=== PATIENT | female | born 1955 | race Caucasian/White ===

== ENCOUNTER → 2018-12-18 | Outpatient (CLI) | payer MEDICARE, OTHER ==
[~2018-12-18] MED LIST: ALBU90OI6 INH; AMOX875 PO; Augmentin 875-1 EACH PO; Duoneb 2.5-0.5 M3 ML INH; FLUSAL1005; FLUSAL2505; Hydrocodone-Ap1 EA23; LAMO100 PO; LEVFLO500 PO; METPRE4DP PO; Mobic15 MG; Mucinex600 MG PO; Norco 5-325 Ta1 EACH PO; PRED20; Paxil40 MG PO; Prednisone20 MG PO
[2018-12-20 18:06] LABS: HPV 16 Negative (Negative); HPV 18 Negative (Negative); HPV OTHER HR TYPES Negative (Negative)
== END | disposition home or self-care (01) ==
LOC: LAB SHORT 20:17 → LAB 20:17
PROVIDERS: Physician Assistant
DX: Z12.4 Encounter for screening for malignant neoplasm of cervix (principal)
CPT/HCPCS: 87624; G0123

== ENCOUNTER 2019-08-21 11:10 | Inpatient (IN) | payer MEDICARE, OTHER ==
[~2019-08-21] VITALS: Ht 157.5 cm; Wt 87.5 kg
[2019-08-21 11:49] LABS: Hemoglobin 15.8 g/dL (11.5-16.0); Mean Corpuscular HGB 30.4 pg (26.0-34.0); Mean Corpuscular HGB Conc 33.6 g/dL (31.5-36.5); Mean Corpuscular Volume 90 fL (80-100); Mean Platelet Volume 9.1 fL (9.1-12.4); Platelet Count 336 K/mm3 (150-400); RDW Coefficient Variation 13.2 % (11.7-14.2); RDW Standard Deviation 43.8 fL (35.1-46.3); White Blood Cell Count 12.51 K/mm3 (4.00-11.30)
[2019-08-21 11:55] LABS: International Normalized Ratio 0.91; Prothrombin Time Results 9.8 Sec (9.7-11.5)
[2019-08-21 11:59] LABS: Alanine Aminotransfer (ALT/SGP 18 U/L (12-78); Albumin, Blood 3.9 g/dL (3.4-5.0); Albumin/Globulin Ratio 1.2 (0.8-1.8); Alk Phos 79 U/L (50-136); Anion Gap 7 mmol/L (6-16); Aspartate Aminotrans (AST/SGOT 16 U/L (12-37); Bilirubin, Total 0.4 mg/dL (0.1-1.0); Blood Urea Nitrogen 11 mg/dL (8-24); Bun/Creatinine Ratio 12.5 (12.0-20.0); CHOL/HDL RATIO 4.5; CO2, Blood 25 mmol/L (21-32); Calcium, Blood 9.6 mg/dL (8.5-10.1); Chloride, Blood 107 mmol/L (98-108); Cholesterol 207 mg/dL (50-200); Creatinine, Blood 0.88 mg/dL (0.40-1.00); Globulin, Blood 3.2 g/dL (2.2-4.0); Glomerular Filtration Rate >60 (60-); Glucose, Blood 178 mg/dL (70-99); HDL Cholesterol 46 mg/dL (>39); LDL/HDL RATIO 2.6; Low Density Lipoprotein Chol 120 mg/dL (0-110); Magnesium, Blood 2.1 mg/dL (1.6-2.4); Potassium, Blood 3.6 mmol/L (3.5-5.5); Sodium, Blood 139 mmol/L (136-145); Total Protein, Blood 7.1 g/dL (6.4-8.2); Triglycerides 204 mg/dL (30-160); Troponin I 0.139 ng/mL (0.000-0.040); Very Low Density Lipoprot Chol 40 mg/dL (6-32)
[2019-08-21] MEDS ORDERED: NAPR500 PO (16:55)
[2019-08-21] MEDS ORDERED: FLUT1DIS5 INH (16:57)
[2019-08-21] MEDS ORDERED: CYCLOBENZAPRINE5 MG PO (16:58)
--- NOTE | 2019-08-21 19:00 | NUR ---
ASSUMED CARE NOTE: ASSUMED CARE OF PT @ 1900, RECEVIED REPORT FROM MARIA VICTORIA TILLEY. PT IS ALERT AND ORIENTEDX3. PT IN SINUS TACH WITH HR IN THE 110'S. PT IS ON 2L OF O2 VIA NC, SPO2 ABOVE 90% PT'S LUNG SOUNDS ARE CLEAR T/O. PT STATES 6/10 PAIN TO HEAD AND JAW. NITRO RUNNING @ 10MCG/MIN. TR BAND IN PLACE TO R WRIST WITH 4CC OF AIR INFLATED. CATH SITE WNL, NO HEMATOMA OR ACTIVE BLEEDING NOTE. PT DENIES NUMBNESS OR TINGILING DISTAL TO SITE, FINGERS WARM AND PINK WITH CAP REFILL LESS THEN 3 SEC. BOWEL TONES HEARD IN ALL FOUR QUADRANTS. PT USING BEDPAN AT BEDSIDE. WILL CONTINUE TO MONITOR PT T/O SHIFT.
--- NOTE | 2019-08-21 19:15 | NUR ---
PT TO ICU 10 FROM [facility] AT 1540, ALERT AND ORIENTED X4, APPROPRIATE AND COOPERATIVE, POSITIONS SELF IN BED INDEPENDENTLY. HR 100-110, BP ELEVATED, OTHER VSS. EKG OBTAINED PER ORDERS, TR BAND IN PLACE TO R WRIST WITH 12ML AIR, SITE WNL, WRIST IMMOBILIZER IN PLACE. R HAND WITH SLIGHT PURPLE DISCOLORATION AND COOL TO TOUCH, SENSATION INTACT, PULSE WNL, CAP REFILL <3SEC, SPO2 PLETH GOOD ON R FIRST FINGER, WILL CONTINUE TO MONITOR. PT REPORTS 5/10 NECK AND JAW PAIN AND HEADACHE. DR. LUCERO IN TO SEE PT AND REVIEW EKG, AWARE OF PT'S C/O, NEW ORDERS RECEIVED. TYLENOL AND BP MEDS ADMINISTERED. AIR FROM TR BAND BEING RELEASED PER PROTOCOL, NITRO INFUSING PER ORDERS. VS REMAIN STABLE WITH NITRO GTT. PT HAD 2 SOFT BM'S AND 1 LARGE LIQUID BM, DENIES HAVING DIARRHEA PRIOR TO ARRIVAL. TR BAND WITH 4ML AIR AT SHIFT CHANGE, SITE REMAINS WNL, NO BLEEDING OR HEMATOMAS NOTED. PT REPORTS JAW AND NECK PAIN ARE DECREASING, DENIES CHEST PAIN/PRESSURE. REPORT TO ONCOMING SHIFT.
--- NOTE | 2019-08-21 22:11 | NUR ---
UPDATE: PT HAD 800CC OF GREEN EMESIS, AFTER ATTEMPTING TO EAT DINNER. ZOFRAN GIVEN PER EMAR. NITRO WAS INCREASED TO 15MCG/MIN DUE TO INCREASED CP, SPB IN THE 170'S BEFORE, 130'S AFTER NITRO INCREASE. PT HAD A LOOSE INCONTIENT BOWEL MOVEMENT. TR BAND IS COMPLETELY DEFLATED, SITE WNL.
[2019-08-22 03:14] LABS: Hematocrit 44.7 % (33.0-51.0); Hemoglobin 14.8 g/dL (11.5-16.0); Mean Corpuscular HGB 30.2 pg (26.0-34.0); Mean Corpuscular HGB Conc 33.1 g/dL (31.5-36.5); Mean Corpuscular Volume 91 fL (80-100); Mean Platelet Volume 9.1 fL (9.1-12.4); Platelet Count 288 K/mm3 (150-400); RDW Coefficient Variation 13.2 % (11.7-14.2); RDW Standard Deviation 44.5 fL (35.1-46.3); White Blood Cell Count 13.51 K/mm3 (4.00-11.30)
[2019-08-22 03:37] LABS: Alanine Aminotransfer (ALT/SGP 24 U/L (12-78); Albumin, Blood 3.6 g/dL (3.4-5.0); Albumin/Globulin Ratio 1.1 (0.8-1.8); Alk Phos 75 U/L (50-136); Anion Gap 5 mmol/L (6-16); Aspartate Aminotrans (AST/SGOT 116 U/L (12-37); Bilirubin, Total 0.3 mg/dL (0.1-1.0); Blood Urea Nitrogen 10 mg/dL (8-24); Bun/Creatinine Ratio 14.5 (12.0-20.0); CHOL/HDL RATIO 4.9; CO2, Blood 29 mmol/L (21-32); Chloride, Blood 106 mmol/L (98-108); Cholesterol 190 mg/dL (50-200); Creatinine, Blood 0.69 mg/dL (0.40-1.00); Globulin, Blood 3.2 g/dL (2.2-4.0); Glomerular Filtration Rate >60 (60-); Glucose, Blood 142 mg/dL (70-99); HDL Cholesterol 39 mg/dL (>39); LDL/HDL RATIO 2.3; Low Density Lipoprotein Chol 88 mg/dL (0-110); Magnesium, Blood 2.2 mg/dL (1.6-2.4); Sodium, Blood 140 mmol/L (136-145); Total Protein, Blood 6.8 g/dL (6.4-8.2); Triglycerides 313 mg/dL (30-160); Very Low Density Lipoprot Chol 62 mg/dL (6-32)
--- NOTE | 2019-08-22 05:42 | NUR ---
SHIFT SUMMARY: SEE PREVIOUS NOTES. PT REMAINS ALERT AND ORIENTEDX3. PT IS ON 2L OF O2 VIA NC WITH SPO2 @ 95% PT HAS BEEN IN SINUS TACH T/O SHIFT WITH HR BETWEEN 110, AND 115 WITH ACTIVITY. PT DENIES SOB. NITRO DRIP TITRATED DOWN TO 5MCG/MIN. NITRO WAS PLACED ON SB, FOR A SHORT PERIOD OF TIME, HOWEVER, PT STATED THAT SHE FELT LEFT SIDED CP RETURN. TR BAND OFF SINCE 08/20 2299, NO ACTIVE BLEEDING OR HEMATOMA NOTED. PT VOMITED 2X THIS SHIFT, ZOFRAN GIVEN FOR NAUSEA. PT REPORTED HAVING A HEADACHE, ACETAMINOPHEN GIVEN PRN. PT HAS BEEN USING BEDPAN DURING SHIFT. WILL CONTINUE TO MONITOR PT UNTIL REPORT IS GIVEN TO ONCOMING SHIFT.
--- NOTE | 2019-08-22 07:44 | NUR ---
CARE ASSUMED ASSESSMENT COMPLETED. PT CONTINUES TO REPORT HEADACHE, JAW AND NECK PAIN, LEFT POSTERIOR SHOULDER PAIN, AND LEFT ARM PAIN 5/10, NITRO GTT INCREASED TO 10MCG/MIN. BP AND HR SLIGHTLY ELEVATED, NO ST ELEVATION NOTED ON BUYING AGENT. R RADIAL ACCESS SITE WNL, TEGADERM CDI, WRIST IMMOBILIZER IN PLACE. PT REMINDED NOT TO USE R ARM. PT REPORTS MILD NAUSEA, DENIES NEED FOR MEDICATION AT THIS TIME. MOODS REMAIN LABILE, PT CRYING INTERMITTENTLY.
--- NOTE | 2019-08-22 09:40 | NUR ---
UPDATE DR. LUCERO IN TO SEE PATIENT, NEW ORDERS. NITRO GTT STOPPED, NS INFUSING AT 100ML/HR. PO MEDS ADMINISTERED WITHOUT DIFFICULTY. PT UP TO CHAIR FOR BREAKFAST, GAIT STEADY, TOLERATING MEALS WELL. AMBULATED TO TOILET TO VOID, THEN BACK TO CHAIR. PT NOW RESTING IN BED, REPORTS PAIN REMAINS BUT IS NOW 4/10. WILL CONTINUE TO MONITOR.
--- NOTE | 2019-08-22 15:04 | NUR ---
UPDATE PT NO PCU STATUS PER DR. LUCERO, HOME MEDICATIONS RESUMED. VSS, HR 90'S SINUS, ST ELEVATION REMAINS PRESENT, PT DOES REPORT SOME RELIEF FROM PAIN, ALTHOUGH STATES IT IS STILL MILDLY PRESENT. TROPONIN REDRAWN, DR. LUCERO AWARE OF RESULTS, WILL RECHECK TOMORROW AM. PT REMAINS PLEASANT AND COOPERATIVE WITH CARE, MOODS STILL LABILE AT TIMES. PT RESTING IN BED WITH EYES CLOSED, REPOSITIONS SELF. R RADIAL ACCESS SITE REMAINS WNL.
--- NOTE | 2019-08-22 15:44 | NUR ---
UPDATE PT UP TO BR FOR SMALL BM, BECAME SOB WITH EXERTION, EXP WHEEZE NOTED ON LEFT SIDE. PT BACK TO BED, NO DESAT DURING TRANSFER, SPO2 94% ON 2L/NC. HOB ELEVATED FOR COMFORT, RT CALLED FOR DUONEB.
--- NOTE | 2019-08-22 17:26 | NUR ---
1710: PCU TRANSFER PT REMAINS ALERT AND ORIENTED, APPROPRIATE AND COOPERATIVE, VSS. DENIES SOB, LS CTA, SPO2 MID 90'S ON 2L/NC. PT DENIES CHEST PAIN, STATES JAW AND NECK PAIN ARE STILL MILD. REPORT GIVEN TO TREVA COBOS. PT TO PCU RM 15 VIA WITH CHART, MEDS, AND BELONGINGS AT THIS TIME. TRANSFERRED SELF FROM WC TO BED WITHOUT DIFFICULTY, DENIES CP OR SOB WITH THIS EXERTION.
--- NOTE | 2019-08-22 20:28 | NUR ---
Assumed Care Pt presents in bed, talking to son on phone upon initial assessment. Pt is euphoric, happy, laughing and cooperative. Quite suddenly, pt begins to cry and becomes visibly anxious. When asked what has been bothering her, pt states "i miss my cat". empathetic listening provided. Pt ambulates to bathroom independantly but with this RN at bedside and gait is steady although pt becomes SOB with ambulation. Pt states "my chest hurts when I walk". No changes to telemetry with ambulation, pt remains with NSR. VSS. Oxygenation remains >94% on 2 L with ambulation. Pt is s/p angio, site is [facility]. arm board in place. Will continue to monitor.
--- NOTE | 2019-08-23 05:41 | NUR ---
Shift Summary VSS, at start of shift, pt endorsing mild 2/10 chest pain with ambulation. Chest pain has since resolved to 0/10 chest pain with application of heating pad. Pt is alert and oriented, at times laughing and at times tearful. Overall, compliant and cooperative. Pt with no changes to tele, troponin trending down, last reading 14.4. R radial access site wnl, tegaderm in place, and arm board in place. Will continue to monitor. no acute changes from initial assessment for note.
--- NOTE | 2019-08-23 07:52 | NUR ---
pt laying in bed awake a/ox3, pleasant and cooperative with care, follows commands well, denies any complaints this am, states she slept ok last night, lungs are clear in [place], dim in bases, resp even and unlabored, no cough noted, hrr, tele in place running sr per monitor, see strip, no edema noted, ppp+2, cap refill <3sec, vs stable, afebrile, iv sites x2 to left fa, infusing ns as ordered, btx4, abd flat soft nontender, voids without diff, skin has tr band site with armboard in place, site is clear, adam harris, call light in reach.
[2019-08-23] MEDS ORDERED: ACET325 PO (11:34)
[2019-08-23] MEDS ORDERED: Aspir 8181 MG PO (11:35)
[2019-08-23] MEDS ORDERED: Prinivil10 MG PO (11:35)
[2019-08-23] MEDS ORDERED: ATORVASTATIN CA40 M1 PO (11:35)
[2019-08-23] MEDS ORDERED: TICA90TA PO (11:36)
[2019-08-23] MEDS ORDERED: METO25ER PO (11:36)
--- NOTE | 2019-08-23 12:22 | NUR ---
PT HAS BEEN DISCHARGED TO HOME, IV'S WERE LEAKING, THEY WERE REMOVED INTACT, WENT OVER INSTRUCTIONS FOR HER TR BAND SITE, NEW MEDS CALLED INTO [facility], [facility] INCLUDED FOR HER. SHE VERBALIZED UNDERSTANDING. WILL LEAVE AT 1530 WHEN HER CAREGIVER CAN COME TO GET HER. CALL LIGHT IN REACH.
== END 2019-08-23 15:04 | disposition home or self-care (01) | DRG 247 ==
LOC: ER 11:10 → ICUW 11:17 → PCU 08-22 17:14
PROVIDERS: Emergency Medicine; ADMIT Internal Medicine Interventional Cardiology
PROC: 027135Z Dilation of Coronary Artery, Two Arteries with Two Drug-eluting Intraluminal Devices, Percutaneous Approach (ICD-10-PCS; principal; 2019-08-21)
PROC: 02C13ZZ Extirpation of Matter from Coronary Artery, Two Arteries, Percutaneous Approach (ICD-10-PCS; 2019-08-21)
PROC: 05C73ZZ Extirpation of Matter from Right Axillary Vein, Percutaneous Approach (ICD-10-PCS; 2019-08-21)
PROC: 05773DZ Dilation of Right Axillary Vein with Intraluminal Device, Percutaneous Approach (ICD-10-PCS; 2019-08-21)
PROC: B241ZZ3 Ultrasonography of Multiple Coronary Arteries, Intravascular (ICD-10-PCS; 2019-08-21)
PROC: 4A023N7 Measurement of Cardiac Sampling and Pressure, Left Heart, Percutaneous Approach (ICD-10-PCS; 2019-08-21)
DX: I21.19 ST elevation (STEMI) myocardial infarction involving other coronary artery of inferior wall (principal); J44.9 Chronic obstructive pulmonary disease, unspecified; H91.90 Unspecified hearing loss, unspecified ear; M19.90 Unspecified osteoarthritis, unspecified site; Z87.891 Personal history of nicotine dependence; Z96.643 Presence of artificial hip joint, bilateral; F31.9 Bipolar disorder, unspecified
CPT/HCPCS: 36415; 71045; 76937; 80053; 80061; 83735; 84484; 85027; 85347; 85610; 85730; 86850; 86900; 86901; 92920; 92978; 92979; 93005; 93010; 93306; 93458; 94640; 99152; 99153; 99285-25; A9270; A9270-GY; C1725; C1753; C1757; C1769; C1874; C1887; C1894; C9601; C9606; J0461; J1644; J1650; J2250; J2405; J3010; J3246; J7030; J7040; Q9967

== ENCOUNTER → 2021-03-18 | Outpatient (CLI) | payer MEDICARE, OTHER ==
[~2021-03-18] MED LIST changes: +ACET325 PO; +ATORVASTATIN CA40 M1 PO; +Aspir 8181 MG PO; +CYCLOBENZAPRINE5 MG PO; +FLUT1DIS5 INH; +METO25ER PO; +NAPR500 PO; +Prinivil10 MG PO; +TICA90TA PO
== END ==
LOC: LAB SHORT 18:57 → LAB 18:57
DX: H60.509 Unspecified acute noninfective otitis externa, unspecified ear (principal)
CPT/HCPCS: 87102

== ENCOUNTER 2021-07-01 11:41 | Emergency (ER) | payer MEDICARE, OTHER ==
[~2021-07-01] VITALS: Ht 160 cm; Wt 82.1 kg
[2021-07-01 12:38] LABS: BASOPHILS ABSOLUTE AUTO 0.02 K/mm3 (0.00-0.23); BASOPHILS PERCENT AUTO 0 % (0-2); EOSINOPHILS ABSOLUTE AUTO 0.59 K/mm3 (0.00-0.68); EOSINOPHILS PERCENT AUTO 8 % (0-6); Hematocrit 44.8 % (33.0-51.0); Hemoglobin 14.7 g/dL (11.5-16.0); IMMATURE GRAN ABSOLUTE AUTO 0.03 K/mm3 (0.00-0.10); IMMATURE GRAN PERCENT AUTO 0 % (0-1); LYMPHOCYTES PERCENT AUTO 24 % (21-46); MONOCYTES ABSOLUTE AUTO 0.52 K/mm3 (0.16-1.47); MONOCYTES PERCENT AUTO 7 % (4-13); Mean Corpuscular HGB 29.2 pg (26.0-34.0); Mean Corpuscular HGB Conc 32.8 g/dL (31.5-36.5); Mean Corpuscular Volume 89 fL (80-100); Mean Platelet Volume 8.9 fL (9.1-12.4); NEUTROPHILS ABSOLUTE AUTO 4.72 K/mm3 (1.96-9.15); NEUTROPHILS PERCENT AUTO 61 % (41-73); Platelet Count 306 K/mm3 (150-400); RDW Coefficient Variation 12.9 % (11.7-14.2); RDW Standard Deviation 42.2 fL (35.1-46.3); Red Blood Cell Count 5.03 M/mm3 (3.80-5.20); White Blood Cell Count 7.78 K/mm3 (4.00-11.30)
[2021-07-01 12:58] LABS: Alanine Aminotransfer (ALT/SGP 15 U/L (12-78); Albumin, Blood 3.1 g/dL (3.4-5.0); Albumin/Globulin Ratio 0.8 (0.8-1.8); Alk Phos 81 U/L (50-136); Anion Gap 6 mmol/L (6-16); Aspartate Aminotrans (AST/SGOT 10 U/L (12-37); Bilirubin, Total 0.2 mg/dL (0.1-1.0); Blood Urea Nitrogen 10 mg/dL (8-24); Bun/Creatinine Ratio 12.9 (12.0-20.0); CO2, Blood 28 mmol/L (21-32); Calcium, Blood 9.8 mg/dL (8.5-10.1); Chloride, Blood 107 mmol/L (98-108); Creatinine, Blood 0.78 mg/dL (0.40-1.00); Glomerular Filtration Rate >60 (60-); Glucose, Blood 112 mg/dL (70-99); Potassium, Blood 4.2 mmol/L (3.5-5.5); Sodium, Blood 141 mmol/L (136-145); Total Protein, Blood 7.1 g/dL (6.4-8.2)
== END 2021-07-01 17:52 | disposition home or self-care (01) ==
LOC: ER 11:41
PROVIDERS: Physician Assistant
DX: R45.7 State of emotional shock and stress, unspecified (principal); R07.9 Chest pain, unspecified; I25.2 Old myocardial infarction; J44.9 Chronic obstructive pulmonary disease, unspecified; Z87.891 Personal history of nicotine dependence; Z79.899 Other long term (current) drug therapy
CPT/HCPCS: 36415; 71046; 80053; 83880; 84484; 85025; 93005; 93010; 99285-25; A9270